=== PATIENT | male | born 1975 | race Caucasian/White ===

== ENCOUNTER 2023-11-12 13:40 | Inpatient (IN) | payer OTHER ==
[2023-11-12 15:05] VITALS: BMI 32.3
[2023-11-12] MEDS ORDERED: LOPERAMIDE HCL 2 MG CAPSULE PO PRN (17:56)
[2023-11-12] MEDS ORDERED: BENZOCAINE/MENTHOL (CHLORASEPTIC ) LOZENGE MM PRN (17:56)
[2023-11-12] MEDS ORDERED: MAGNESIUM HYDROX 2400MG/30ML ORAL SUSPENSION 30 ML CUP PO PRN (17:56)
[2023-11-12] MEDS ORDERED: DOCUSATE SODIUM 100 MG CAPSULE (FP) PO PRN (17:56)
[2023-11-12] MEDS ORDERED: guaiFENesin 600 MG TABLET.ER (FP) PO PRN (17:56)
[2023-11-12] MEDS ORDERED: NALOXONE HCL (KLOXXADO) 8 MG SPRAY NS PRN (17:56)
[2023-11-12] MEDS ORDERED: NICOTINE POLACRILEX 2 MG LOZENGE BC PRN (17:56)
[2023-11-12] MEDS ORDERED: ACETAMINOPHEN 325 MG TABLET (FP) PO PRN (17:56)
[2023-11-12] MEDS ORDERED: NALOXONE HCL 0.4 MG/ML VIAL IM PRN (17:56)
[2023-11-12] MEDS ORDERED: NICOTINE POLACRILEX 2 MG GUM BUC PRN (17:56)
[2023-11-12] MEDS ORDERED: BENZONATATE 200 MG CAPSULE PO PRN (17:56)
[2023-11-12] MEDS ORDERED: MAG HYDROX/AL HYDROX/SIMETH 30 ML UNIT-DOSE CUP PO PRN (17:56)
[2023-11-12] MEDS ORDERED: POLYETHYLENE GLYCOL (HEALTHYLAX) 3350 17 GM PACKET PO PRN (17:56)
[2023-11-12] MEDS ORDERED: P-EPHED 60MG/TRIPROLIDI 2.5MG TABLET PO PRN (17:56)
[2023-11-12] MEDS ORDERED: IBUPROFEN 400 MG TABLET (FP) PO PRN (17:56)
[2023-11-12] MEDS: VITAMINS A AND D TOPICAL OINTMENT TP SCH (19:10)
[2023-11-12] MEDS ORDERED: TUBERCULIN PPD 5 TU/0.1ML VIAL ID ONE (19:20)
[2023-11-12] MEDS: THIAMINE HCL 100 MG TABLET (FP) PO SCH (21:30)
[2023-11-12] MEDS: MELATONIN 5 MG TABLETS PO SCH (21:30)
[2023-11-12] MEDS: TUBERCULIN PPD 5 TU/0.1ML SYRINGE (IN PATIENT USE ONLY) ID ONE (21:31)
[2023-11-13] MEDS ORDERED: methaDONE HCL 10 MG TABLET PO SCH (09:45)
[2023-11-13] MEDS: PRENATAL VITAMINS W/ FOLIC ACID TABLET (FP) PO SCH (10:01)
[2023-11-13 11:40] LABS: HEMATOCRIT 35.6 % (35.4-49); HEMOGLOBIN 11.9 GM/dL (11.7-16.9); MCH 29.7 pg (25.7-33.7); MCHC 33.3 g/dl (32.0-35.9); MEAN CELL VOLUME 89.2 fl (80-96); MEAN PLT VOLUME 7.4 fl (7.5-11.1); PLATELET COUNT 203 10^3/uL (134-434); RBC 3.99 M/mm3 (4.00-5.60); RDW 14.4 % (11.9-15.9); WHITE BLOOD COUNT 10.6 K/mm3 (4.0-10.0)
[2023-11-13 11:53] LABS: CHLORIDE 104 mmol/L (98-107); POTASSIUM 4.1 mmol/L (3.5-5.1); SODIUM 134 mmol/L (136-145)
[2023-11-13 11:55] LABS: GLUCOSE,RANDOM 86 mg/dL (74-106)
[2023-11-13 11:56] LABS: ALBUMIN 2.9 g/dl (3.4-5.0); ANION GAP 2 mmol/L (4-13); BLOOD UREA NITROGEN 15.6 mg/dL (7-18); CALCIUM 8.6 mg/dL (8.5-10.1); CO2 29 mmol/L (21-32)
[2023-11-13 11:59] LABS: SGPT/ALT 20 U/L (13-61)
[2023-11-13 12:00] LABS: CREATININE 0.8 mg/dL (0.55-1.3); SGOT/AST 16 U/L (15-37)
[2023-11-13 12:01] LABS: BILIRUBIN,TOTAL 0.4 mg/dL (0.2-1); TOT PROT 7.1 g/dl (6.4-8.2)
[2023-11-13 12:02] LABS: ALK PHOS 98 U/L (45-117)
[2023-11-13] MEDS: MIRTAZAPINE 15 MG TABLET (FP) PO SCH (21:43)
[2023-11-14 11:57] LABS: PH,URINE 6.5 (5.0-8.0); URINE APPEARANCE CLEAR; URINE BILIRUBIN NEGATIVE (NEGATIVE); URINE COLOR YELLOW; URINE GLUCOSE (UA) NEGATIVE (NEGATIVE); URINE KETONE NEGATIVE (NEGATIVE); URINE LEUK ESTERASE NEGATIVE (NEGATIVE); URINE NITRITE NEGATIVE (NEGATIVE); URINE PROTEIN NEGATIVE (NEGATIVE)
[2023-11-15] MEDS: BACLOFEN 10 MG TABLET (FP) PO SCH (14:42)
[2023-11-16] MEDS: IBUPROFEN 600 MG TABLET (FP) PO PRN (21:49)
[2023-11-18] MEDS ORDERED: SALICYLIC ACID (WART REMOVER) 9 ML LIQUID TP PRN (15:47)
[2023-11-21] MEDS: ALBUTEROL SO4 HFA INHALER IH PRN (13:58)
[2023-11-22] MEDS: SALICYLIC ACID (WART REMOVER) 9 ML LIQUID TP SCH (10:01)
[2023-11-25 07:02] VITALS: BP 121/89; PULSE 61; RESP 20; TEMP 97.3
== END 2023-11-25 09:35 | disposition home or self-care (01) | DRG 772 ==
LOC: YASAS 13:40 → Y3W 18:48
PROVIDERS: ADMIT Allergy & Immunology; ATTEND Psychiatry & Neurology Pain Medicine
PROC: HZ42ZZZ Group Counseling for Substance Abuse Treatment, Cognitive-Behavioral (ICD-10-PCS; principal; 2023-11-12)
DX: F14.20 Cocaine dependence, uncomplicated (principal); F11.20 Opioid dependence, uncomplicated; F12.20 Cannabis dependence, uncomplicated; F17.210 Nicotine dependence, cigarettes, uncomplicated; F19.282 Other psychoactive substance dependence with psychoactive substance-induced sleep disorder; F19.24 Other psychoactive substance dependence with psychoactive substance-induced mood disorder; F32.A Depression, unspecified; J45.909 Unspecified asthma, uncomplicated; M25.561 Pain in right knee; G89.29 Other chronic pain; Z62.810 Personal history of physical and sexual abuse in childhood; Z63.8 Other specified problems related to primary support group; Z59.01 Sheltered homelessness
CPT/HCPCS: 36415; 80053; 80307; 81003; 85027; 86780; 87811; 93005; 93010; J0475